=== PATIENT | female | born 1960 | race African-American/Black ===

== ENCOUNTER 2019-08-27 11:29 | Emergency (ER) | payer OTHER ==
[~2019-08-27] VITALS: Ht 167.6 cm; Wt 95.3 kg
[2019-08-27 11:38] VITALS: BP 154/112
--- NOTE | 2019-08-27 11:45 | NUR ---
PT C/O ANXIETY, CHRONIC BACK PAIN, INSOMNIA X3 DAYS. PT STATES SHE HAS BEEN OFF OF [facility]CO FOR LOWER BACK PAIN FOR ONE WEEK DUE TO LORAZEPAM THAT SHE IS TAKING FOR HER ANXIETY. PT DENIES ANY FEVER, CP, SOB, OR COUGH AT THIS TIME; PATIENT STATES PAIN OF 10/10 AT THIS TIME; VSS; PATIENT POSITIONED FOR COMFORT; HOB ELEVATED; BEDRAILS UP X2; BED DOWN. ER MD MADE AWARE OF PT STATUS.
--- NOTE | 2019-08-27 12:16 | NUR ---
Dr. Black is evaluating the patient at bedside.
[2019-08-27] MEDS ORDERED: KETOROLAC 30 MG/ML VIAL IM ONE (12:30)
[2019-08-27] MEDS ORDERED: LORazepam 0.5 MG TAB PO ONE (12:30)
[2019-08-27] MEDS ORDERED: ONDANSETRON 4 MG ODT PO ONE (12:40)
[2019-08-27 13:04] VITALS: BP 152/95
== END 2019-08-27 13:04 | disposition home or self-care (01) ==
LOC: MED 11:29
DX: M54.5 Low back pain (principal); E11.9 Type 2 diabetes mellitus without complications; I10 Essential (primary) hypertension; I50.9 Heart failure, unspecified; Z95.0 Presence of cardiac pacemaker; Z92.89 Personal history of other medical treatment
CPT/HCPCS: 96372; 99283; J1885; Q0162

== ENCOUNTER 2019-09-10 09:50 | Emergency (ER) | payer OTHER ==
[~2019-09-10] VITALS: Ht 167.6 cm; Wt 96.2 kg
[2019-09-10 09:57] VITALS: BP 131/73
--- NOTE | 2019-09-10 10:19 | NUR ---
58 YEAR OLD FEMALE COMPLAINS OF CHEST PAIN X 2 DAYS. PT STATES THAT PAIN FEELS LIKE CONGESTION. PT ALSO STATES SOB, RR 21, SPO2 98% ON RA. PT LUNGS CLEAR BILATERAL BUT DIMINISHED AND COUGHS WHEN DEEP BREATHE. PT AOX4, BREATHING EVEN AND UNLABORED, SKIN WARM AND DRY. BED IN LOWEST POSIITON,LOCKED, BED RAIL UPX1. PT PLACED ON MONITOR, VS STABLE. PMH - DM2, HTN, ANXIETY, BACK PAIN, ASTHMA, CARDIAC ARREST X 2 YR AGO ALLERGIES - FLONASE
[2019-09-10] MEDS ORDERED: LORazepam 2 MG/ML VIAL IVP ONE (10:30)
[2019-09-10 10:46] LABS: BASOPHILS # (AUTO) 0.1 K/uL (0.00-0.22); BASOPHILS % (AUTO) 0.6 % (0.0-2.0); EOSINOPHILS # (AUTO) 1.1 K/uL (0-0.4); HEMATOCRIT 34.2 % (36-48); HEMOGLOBIN 11.5 g/dL (12.0-16.0); LYMPHOCYTES # (AUTO) 2.6 K/uL (2.5-16.5); LYMPHOCYTES % (AUTO) 25.2 % (20.5-51.1); MEAN CORPUSCULAR HEMOGLOBIN 33 pg (27-31); MEAN CORPUSCULAR HGB CONC 34 g/dL (33-37); MEAN CORPUSCULAR VOLUME 98.7 fL (80-94); MONOCYTES # (AUTO) 0.9 K/uL (0.8-1.0); MONOCYTES % (AUTO) 8.5 % (1.7-9.3); NEUTROPHILS # (AUTO) 5.6 K/uL (1.8-7.7); NEUTROPHILS % (AUTO) 54.7 % (42.2-75.2); PLATELET COUNT (AUTO) 231 K/uL (140-450); RED BLOOD CELL COUNT(AUTO) 3.46 MIL/uL (4.20-5.40); RED CELL DISTRIBUTION WIDTH 12.4 % (11.6-13.7); WHITE BLOOD COUNT (AUTO) 10.3 K/uL (4.8-10.8)
[2019-09-10 11:11] LABS: ALBUMIN 3.2 g/dL (3.4-5.0); ANION GAP 15.2 (8-16); CARBON DIOXIDE 25.3 mmol/L (21-32); CREATININE 1.6 mg/dL (0.6-1.3); POTASSIUM 3.5 mmol/L (3.5-5.1); TOTAL BILIRUBIN 0.1 mg/dL (0.0-1.0)
--- NOTE | 2019-09-10 11:20 | NUR ---
PT RESTING WITH EYES CLOSED, BREATHING EVEN AND UNLABORED
--- NOTE | 2019-09-10 11:46 | NUR ---
PT STATES SHE FEELS MUCH LESS ANXIOUS AND IS FEELING BETTER
--- NOTE | 2019-09-10 13:38 | NUR ---
PT ALERT AND AWAKE, BREATHING EVEN AND UNLABORED
--- NOTE | 2019-09-10 13:50 | NUR ---
PT STATES SHE IS HAVING PAIN AND ANXIETY NOW, STATES SHE WANTS DILAUDID. ERMD MADE AWARE
[2019-09-10 14:10] VITALS: BP 140/92
--- NOTE | 2019-09-10 14:10 | NUR ---
Patient discharged with v/s stable. Written and verbal after care instructions about anxiety and panic attacks, and adjustment disorder given and explained. Patient verbalized understanding. Ambulatory with steady gait. All questions addressed prior to discharge. Advised to follow up with PMD.
[2019-09-11] MEDS ORDERED: AZITHROMYCIN 500 MG INJ VIAL IV ONE (00:43)
== END 2019-09-10 14:10 | disposition home or self-care (01) ==
LOC: MED 09:50
DX: F41.9 Anxiety disorder, unspecified (principal); R06.02 Shortness of breath; M54.5 Low back pain; E11.9 Type 2 diabetes mellitus without complications; F17.200 Nicotine dependence, unspecified, uncomplicated; I10 Essential (primary) hypertension; I51.89 Other ill-defined heart diseases; J45.909 Unspecified asthma, uncomplicated
CPT/HCPCS: 36415; 71045; 80053; 84484; 85025; 93005; 96374; 99285; J2060; Q0092; J0456

== ENCOUNTER 2020-01-27 19:39 | Emergency (ER) | payer OTHER ==
[~2020-01-27] VITALS: Ht 167.6 cm; Wt 95.3 kg
[2020-01-27 19:45] VITALS: BP 182/100
--- NOTE | 2020-01-27 19:47 | NUR ---
SEEN AND EXAMINED BY CHIP AND WITH ORDERS, CARRIED OUT
[2020-01-27] MEDS ORDERED: MORPHINE SULFATE 4 MG/ML SYR IVP ONE (20:00)
[2020-01-27] MEDS ORDERED: NACL 0.9% 1,000 ML IV SCH (20:00)
[2020-01-27] MEDS ORDERED: ONDANSETRON 4 MG/2 ML VIAL IVP ONE ×2 (20:00→23:55)
--- NOTE | 2020-01-27 20:08 | NUR ---
EKG PERFORMED IN TRIAGE ROOM. EKG READS SINUS RHYTHM @ 82
[2020-01-27 20:41] LABS: BASOPHILS # (AUTO) 0.2 K/uL (0.00-0.22); BASOPHILS % (AUTO) 0.9 % (0.0-2.0); EOSINOPHILS # (AUTO) 0.1 K/uL (0-0.4); EOSINOPHILS % (AUTO) 0.6 % (0.0-4.0); HEMATOCRIT 37.9 % (36-48); HEMOGLOBIN 12.6 g/dL (12.0-16.0); LYMPHOCYTES # (AUTO) 2.2 K/uL (2.5-16.5); LYMPHOCYTES % (AUTO) 11.5 % (20.5-51.1); MEAN CORPUSCULAR HEMOGLOBIN 32 pg (27-31); MEAN CORPUSCULAR HGB CONC 33 g/dL (33-37); MEAN CORPUSCULAR VOLUME 97.5 fL (80-94); MONOCYTES # (AUTO) 1.4 K/uL (0.8-1.0); MONOCYTES % (AUTO) 7.3 % (1.7-9.3); NEUTROPHILS % (AUTO) 79.7 % (42.2-75.2); PLATELET COUNT (AUTO) 262 K/uL (140-450); RED BLOOD CELL COUNT(AUTO) 3.89 MIL/uL (4.20-5.40); RED CELL DISTRIBUTION WIDTH 15.6 % (11.6-13.7); WHITE BLOOD COUNT (AUTO) 18.8 K/uL (4.8-10.8)
[2020-01-27 20:41] LABS: APPEARANCE,URINE CLEAR (CLEAR); BILIRUBIN,URINE NEGATIVE (NEGATIVE); BLOOD, URINE NEGATIVE (NEGATIVE); COLOR,URINE YELLOW (YELLOW); LEUKOCYTE ESTERASE ,URINE NEGATIVE (NEGATIVE); NITRITE, URINE NEGATIVE (NEGATIVE); UGLUCOSE 1+ (NEGATIVE)
--- NOTE | 2020-01-27 20:47 | NUR ---
PT TAKEN TO CT/XRAY VIA W/C.
[2020-01-27 20:51] LABS: ALBUMIN 4.1 g/dL (3.4-5.0); ANION GAP 15.1 (8-16); CARBON DIOXIDE 26.3 mmol/L (21-32); CREATININE 1.2 mg/dL (0.6-1.3); POTASSIUM 3.4 mmol/L (3.5-5.1); TOTAL BILIRUBIN 0.2 mg/dL (0.0-1.0)
--- NOTE | 2020-01-27 20:56 | NUR ---
PT RETURN FROM RAD TO ER MISSYBY
--- NOTE | 2020-01-27 21:12 | NUR ---
PT MOVED TO ER BED
--- NOTE | 2020-01-27 21:22 | NUR ---
Dr. Cunningham examining patient.
[2020-01-27] MEDS ORDERED: ONDANSETRON 4 MG/2 ML VIAL ONE (21:23)
[2020-01-27] MEDS ORDERED: MORPHINE SULFATE 4 MG/ML SYR ONE (21:23)
--- NOTE | 2020-01-27 21:30 | NUR ---
SWAB DONE SENT TO LAB
[2020-01-27] MEDS ORDERED: HYDROcodone/APAP 7.5/325 MG 1 TAB PO ONE (22:35)
[2020-01-27] MEDS ORDERED: NACL 0.9% 1,000 ML IV ONE (22:50)
[2020-01-27] MEDS ORDERED: MORPHINE SULFATE 10 MG/ML VIAL IVP ONE (22:55)
--- NOTE | 2020-01-27 22:59 | NUR ---
PT REPORTS 10/10 PAIN. ERMD MADE AWARE
--- NOTE | 2020-01-27 23:40 | NUR ---
PT REPORTS NAUSEA. ERMD MADE AWARE. NEW ORDER FOR ZOFRAN 4MG IVP, ORDERS CARRIED OUT.
[2020-01-27] MEDS ORDERED: OMEP20TC22 PO (23:47)
[2020-01-27] MEDS ORDERED: CLOP75TA55 PO (23:47)
[2020-01-27] MEDS ORDERED: METH750T5 PO (23:47)
[2020-01-27] MEDS ORDERED: TIZA2CAP PO (23:47)
[2020-01-27] MEDS ORDERED: PAX20 PO (23:47)
[2020-01-27] MEDS ORDERED: ATOR20TA PO (23:47)
[2020-01-27] MEDS ORDERED: LOSA100T51 PO (23:47)
[2020-01-27] MEDS ORDERED: [UNRECOGNIZED DRUG - CODE] PO (23:47)
[2020-01-27] MEDS ORDERED: BUS5 PO (23:47)
[2020-01-27] MEDS ORDERED: HYDR-5092 PO (23:47)
--- NOTE | 2020-01-28 00:10 | NUR ---
PT REPORTS NAUSEA HAS DISOLVED AT THIS TIME.
[2020-01-28] MEDS ORDERED: KETOROLAC 30 MG/ML VIAL IVP ONE (00:30)
[2020-01-28] MEDS ORDERED: diphenhydrAMINE 50 MG/ML VIAL IVP ONE (00:30)
--- NOTE | 2020-01-28 00:45 | NUR ---
SPOKE WITH PATIENT DAUGHTER TO INFORM HER OF PT CONDITION, PT DAUGHTER HUNG UP ON PRIMARY RN. PT DAUGHTER BOLTED IN ER FROM LOBBY AND FOUND BEDSIDE WITH PATIENT. PT DAUGHTER FOUND AGITATED AND UPSET REGARDING HER MOTHERS CARE. DAUGHTER REASSURED THAT MOTHER WAS BEING PROPERLY CARED FOR. PT DAUGHTER INFORMED OF FACILITY POLICY OF NO VISITORS AT THIS TIME AND POLITELY ASKED TO LEAVE AND THAT UPDATES CAN BE RECEIVED VIA TELEPHONE.
[2020-01-28 01:24] VITALS: BP 160/76
--- NOTE | 2020-01-28 01:26 | NUR ---
UPON REASSESSMENT S/P TORADOL ADMINSTRATION, PT REPORTS UNCHANGED 10/10 PAIN. WILL NOTIFY ERMD
--- NOTE | 2020-01-28 01:41 | NUR ---
CALLED REECE WELDON S/W [facility]ULA [facility] TO GIVE REPORT. ETA FOR TRANSPORTATION IS [phone].
--- NOTE | 2020-01-28 01:50 | NUR ---
PT UPDATED ON TRANSFER. PT AGREEABLE TO TRANSFER.
[2020-01-28] MEDS ORDERED: NACL 0.9% 500 ML IV ONE (02:05)
[2020-01-28] MEDS ORDERED: KETAMINE 500 MG/5 ML VIAL IVP ONE (02:05)
--- NOTE | 2020-01-28 02:05 | NUR ---
[facility] AT BEDSIDE
--- NOTE | 2020-01-28 02:11 | NUR ---
CALLED REECE WELDON S/Caryn [facility] TO INFORM THAT PT WAS EN ROUTE.
--- NOTE | 2020-01-28 02:11 | NUR ---
PT TAKEN BY [facility]
== END 2020-01-28 02:11 | disposition short-term general hospital (02) ==
LOC: MED 19:39
DX: K85.90 Acute pancreatitis without necrosis or infection, unspecified (principal); M54.9 Dorsalgia, unspecified; J45.909 Unspecified asthma, uncomplicated; E11.9 Type 2 diabetes mellitus without complications; I10 Essential (primary) hypertension; Z98.84 Bariatric surgery status
CPT/HCPCS: 36415; 71045; 74176; 80053; 81003; 83605; 83690; 84484; 85025; 87040; 87426; 93005; 96361; 96374; 96375; 96376; 99285; J1200; J1885; J2270; J2405; J7030; 99283

== ENCOUNTER 2020-09-13 17:06 | Emergency (ER) | payer OTHER ==
[~2020-09-13] VITALS: Ht 167.6 cm; Wt 83.9 kg
[~2020-09-13 17:06] MED LIST: ATOR20TA PO; BUS5 PO; CLOP75TA55 PO; HYDR-5092 PO; LOSA100T51 PO; METH750T5 PO; OMEP20TC22 PO; PAX20 PO; TIZA2CAP PO; [UNRECOGNIZED DRUG - CODE] PO
[2020-09-13 17:13] VITALS: BP 128/84
--- NOTE | 2020-09-13 17:19 | NUR ---
PT TAKEN TO ER BED 3.
--- NOTE | 2020-09-13 17:56 | NUR ---
59 Y/O FEMALE C/O ABDOMINAL PAIN 07/29 DESCRIBES CRAMPING WITH N/V X 3 DAYS. PT ALSO COMPLAINS OF PALPITATIONS FOR THE PAST WEEK. PT STATES SOME DIZZINESS WITH ANXIETY. PMH: DM2, HTN, DEFIBRILLATOR NKA
--- NOTE | 2020-09-13 18:01 | NUR ---
DR. AMOS AT PT BEDSIDE FOR FURTHER EVALUATION.
[2020-09-13] MEDS ORDERED: NACL 0.9% 1,000 ML IV ONE ×2 (18:10)
[2020-09-13] MEDS ORDERED: MORPHINE SULFATE 4 MG/ML SYR IVP ONE ×2 (18:10→21:55)
[2020-09-13] MEDS ORDERED: ONDANSETRON 4 MG/2 ML VIAL IVP ONE ×2 (18:10)
--- NOTE | 2020-09-13 18:31 | NUR ---
TUMBLING BARREL PAINTER AT PT BEDSIDE.
[2020-09-13 18:36] LABS: BASOPHILS # (AUTO) 0.1 K/uL (0.00-0.22); BASOPHILS % (AUTO) 0.5 % (0.0-2.0); EOSINOPHILS # (AUTO) 0.3 K/uL (0-0.4); EOSINOPHILS % (AUTO) 2.5 % (0.0-4.0); HEMATOCRIT 36.6 % (36-48); HEMOGLOBIN 12.1 g/dL (12.0-16.0); LYMPHOCYTES # (AUTO) 2.3 K/uL (2.5-16.5); MEAN CORPUSCULAR HEMOGLOBIN 33 pg (27-31); MEAN CORPUSCULAR HGB CONC 33 g/dL (33-37); MEAN CORPUSCULAR VOLUME 100.1 fL (80-94); MONOCYTES # (AUTO) 1.4 K/uL (0.8-1.0); MONOCYTES % (AUTO) 10.6 % (1.7-9.3); NEUTROPHILS # (AUTO) 8.9 K/uL (1.8-7.7); NEUTROPHILS % (AUTO) 68.4 % (42.2-75.2); PLATELET COUNT (AUTO) 214 K/uL (140-450); RED BLOOD CELL COUNT(AUTO) 3.66 MIL/uL (4.20-5.40); RED CELL DISTRIBUTION WIDTH 14.3 % (11.6-13.7)
[2020-09-13 18:50] LABS: APPEARANCE,URINE CLEAR (CLEAR); BILIRUBIN,URINE NEGATIVE (NEGATIVE); BLOOD, URINE NEGATIVE (NEGATIVE); COLOR,URINE YELLOW (YELLOW); LEUKOCYTE ESTERASE ,URINE NEGATIVE (NEGATIVE); NITRITE, URINE NEGATIVE (NEGATIVE); UGLUCOSE 3+ (NEGATIVE)
--- NOTE | 2020-09-13 19:05 | NUR ---
Pt taken to CT via W/C.
[2020-09-13 19:06] LABS: ALBUMIN 3.6 g/dL (3.4-5.0); ANION GAP 17.6 (8-16); CARBON DIOXIDE 23.2 mmol/L (21-32); CREATININE 1.4 mg/dL (0.6-1.3); TOTAL BILIRUBIN 0.2 mg/dL (0.0-1.0)
[2020-09-13 19:08] LABS: POTASSIUM 2.8 mmol/L (3.5-5.1)
--- NOTE | 2020-09-13 19:29 | NUR ---
Gave report to PAULA Kamara. Transfer of care at this time.
--- NOTE | 2020-09-13 19:29 | NUR ---
REPORT RECEIVED FROM PAULA SANDOVAL FOR CONTINUATION OF CARE.
[2020-09-13] MEDS ORDERED: POTASSIUM CHLORIDE 20% 40 MEQ/15 ML UDC PO ONE (19:35)
[2020-09-13] MEDS ORDERED: KCL 20 MEQ/WATER INJ PREMIX 200 ML IV ONE (19:35)
--- NOTE | 2020-09-13 21:40 | NUR ---
PATIENT SITTING IN BED LOCKED IN LOWEST POSITION X1 SIDE RAIL UP. PATIENT C/O OF ABDOMINAL AND LOWER BACK PAIN, ERMD MADE AWARE.
[2020-09-13] MEDS ORDERED: POTASSIUM CHLORIDE 20% 40 MEQ/15 ML UDC ONE (21:41)
--- NOTE | 2020-09-13 21:45 | NUR ---
PATIENT REFUSED POTASSIUM MEDICATIONS AT THIS TIME. REPORTS SHE WANTS PAIN MEDICATIONS FIRST. PATIENT REFUSING TO BE ON MONITOR.
[2020-09-13] MEDS ORDERED: LORazepam 1 MG TAB PO ONE (22:50)
--- NOTE | 2020-09-13 22:55 | NUR ---
ANDREIA SAMPLE COLLECTED FROM NARES AND HANDED TO MARTIR FROM LAB.
--- NOTE | 2020-09-14 01:30 | NUR ---
PATIENT CONTINUES TO DISCONNECT SELF FROM MONITOR FOR VS. PATIENT LAYING IN BED ON HER PHONE. BED LOCKED IN LOWEST POSITION X1 SIDERAIL UP, BREATHING EVEN AND UNLABORED. NAD NOTED, WILL CONTINUE TO MONITOR.
[2020-09-14] MEDS ORDERED: HYDROmorphone 2 MG TAB PO ONE ×2 (02:10→04:55)
--- NOTE | 2020-09-14 03:00 | NUR ---
PATIENT LAYING IN BED W HEAD AND ARMS LAYING ON OUT ONTO CHAIR, PATIENT CHAO EYES CLOSED. SPOKE W PATIENT ABOUT LAYING WHOLE BODY AND HEAD ON BED AND NOT THE CHAIR TO PREVENT FALLS PATIENT REFUSED.
--- NOTE | 2020-09-14 03:18 | NUR ---
PATIENT LAYING IN BED W EYES CLOSED, R LATERAL POSITION. X2 SIDE RAILS UP FOR PATIENT SAFETY. PATIENT CONNECTED TO MONITOR W VSS. BREATHING EVEN AND UNLABORED. NAD, NOTED. WILL CONTINUE TO MONITOR.
--- NOTE | 2020-09-14 04:45 | NUR ---
PATIENT SITTING IN BED, W CO 10/10 ABDOMINAL PAIN. PATIENT REFUSES TO BE ON THE MONITOR. UNABLE TO OBTAIN VITAL SIGNS AT THIS TIME. ERMD MADE AWARE, NEW ORDERS FOR PAIN MEDICATION PLACED.
[2020-09-14] MEDS ORDERED: LORazepam 1 MG TAB PO ONE (05:30)
--- NOTE | 2020-09-14 05:57 | NUR ---
MICHAELD made aware of patient BP 170/103. No new orders.
--- NOTE | 2020-09-14 07:12 | NUR ---
Pt report given to PAULA Payton. Transfer of care at this time.
--- NOTE | 2020-09-14 07:12 | NUR ---
Report received from PAULA Kamara; care assumed.
--- NOTE | 2020-09-14 08:10 | NUR ---
Patient resting in bed, bed locked in the lowest position, VSS, and call light within reach.
--- NOTE | 2020-09-14 08:15 | NUR ---
Patient ambulated to the restroom with a steady gait.
--- NOTE | 2020-09-14 09:19 | NUR ---
Patient resting in bed, bed locked in the lowest position, VSS, and call light within reach.
--- NOTE | 2020-09-14 09:50 | NUR ---
Attempted to call report to [phone] multiple times no answer.
--- NOTE | 2020-09-14 10:17 | NUR ---
[facility] AT BEDSIDE FOR TRANSFER
[2020-09-14 10:25] VITALS: BP 170/103
--- NOTE | 2020-09-14 10:25 | NUR ---
Patient to be transferred to [facility]. Is being transferred due to pancreatitis. Receiving facility has accepting physician and available space. ER physician has signed transfer form. Patient or responsible democrat has agreed to transfer and signed form. Patient belongings inventoried and will be sent with patient. Copy of nursing notes, lab reports, EKG, Physicians Orders and X-rays to be sent with patient. Report called to Loya at receiving facility. [facility] ambulance service has been called for transfer. ETA is [phone].
--- NOTE | 2020-09-15 20:39 | NUR ---
LATE NOTE- LATE NOTE- 0.9% NS BOLUS X2 DISCONTINUED AT 1939
== END 2020-09-14 10:25 | disposition short-term general hospital (02) ==
LOC: MED 17:06
DX: K85.90 Acute pancreatitis without necrosis or infection, unspecified (principal); Z20.822 Contact with and (suspected) exposure to COVID-19; E87.6 Hypokalemia; J45.909 Unspecified asthma, uncomplicated; E11.9 Type 2 diabetes mellitus without complications; I10 Essential (primary) hypertension; Z95.0 Presence of cardiac pacemaker
CPT/HCPCS: 36415; 74176; 80053; 81003; 82150; 83690; 83735; 85025; 87426; 96361; 96365; 96375; 96376; 99285; J2270; J2405; J3480; J7030

== ENCOUNTER 2022-11-19 09:23 | Emergency (ER) | payer OTHER ==
[~2022-11-19] VITALS: Ht 167.6 cm; Wt 93.0 kg
[~2022-11-19 09:23] MED LIST changes: -LOSA100T51 PO; +LOSA100T52 PO
[2022-11-19 09:25] VITALS: BP 159/109; PULSE 97; RESP 15; TEMP 98.9; O2SAT 95
[2022-11-19 10:21] VITALS: O2SAT 95
[2022-11-19] MEDS ORDERED: BACITRACIN OINT 500 UNITS/GM PKT TP ONE (10:50)
[2022-11-19] MEDS ORDERED: HYDROcodone/APAP 10/325 MG 1 TAB TAB PO ONE (10:55)
== END 2022-11-19 12:14 | disposition home or self-care (01) ==
LOC: MED 09:23
DX: S61.212A Laceration without foreign body of right middle finger without damage to nail, initial encounter (principal); E11.9 Type 2 diabetes mellitus without complications; I10 Essential (primary) hypertension; J45.909 Unspecified asthma, uncomplicated; Z95.0 Presence of cardiac pacemaker; Z79.899 Other long term (current) drug therapy; W26.0XXA Contact with knife, initial encounter; Y93.89 Activity, other specified; Y92.89 Other specified places as the place of occurrence of the external cause; Y99.8 Other external cause status
CPT/HCPCS: 12001; 90471; 90715; 99283

== ENCOUNTER 2023-01-27 12:42 | Emergency (ER) | payer OTHER | END 2023-01-27 12:55 | disposition left against medical advice (07) | LOC: MED 12:42 | DX: M79.603 Pain in arm, unspecified (principal); Z53.21 Procedure and treatment not carried out due to patient leaving prior to being seen by health care provider ==

== ENCOUNTER 2023-03-29 10:09 | Emergency (ER) | payer OTHER ==
[~2023-03-29] VITALS: Ht 167.6 cm; Wt 90.7 kg
[2023-03-29 10:23] VITALS: BP 159/111; PULSE 86; RESP 19; TEMP 98.7; O2SAT 100
[2023-03-29] MEDS: KETOROLAC 60 MG/2 ML VIAL IM ONE (10:50)
[2023-03-29 13:28] VITALS: BP 168/90; PULSE 84; RESP 20; TEMP 97.2; O2SAT 98
== END 2023-03-29 13:44 | disposition home or self-care (01) ==
LOC: MED 10:09
DX: S20.212A Contusion of left front wall of thorax, initial encounter (principal); M25.562 Pain in left knee; J44.9 Chronic obstructive pulmonary disease, unspecified; E11.9 Type 2 diabetes mellitus without complications; I10 Essential (primary) hypertension; Z98.890 Other specified postprocedural states; Z79.899 Other long term (current) drug therapy; Z79.01 Long term (current) use of anticoagulants; W01.198A Fall on same level from slipping, tripping and stumbling with subsequent striking against other object, initial encounter; Y92.89 Other specified places as the place of occurrence of the external cause; Y93.89 Activity, other specified; Y99.8 Other external cause status
CPT/HCPCS: 71101; 73562; 96372; 99284; J1885

== ENCOUNTER 2023-12-10 06:51 | Emergency (ER) | payer OTHER ==
[~2023-12-10] VITALS: Ht 167.6 cm; Wt 93.0 kg
[2023-12-10 06:54] VITALS: BP 161/81; PULSE 95; RESP 21; O2SAT 99
[2023-12-10 07:07] VITALS: BP 161/81
[2023-12-10] MEDS: ONDANSETRON 4 MG/2 ML VIAL IVP ONE (07:36)
[2023-12-10] MEDS: MORPHINE SULFATE 4 MG/ML SYR IVP ONE ×2 (07:37→11:15)
[2023-12-10] MEDS: NACL 0.9% 1,000 ML IV ONE (07:48)
[2023-12-10 08:01] LABS: BASOPHILS # (AUTO) 0.1 K/uL (0.00-0.22); BASOPHILS % (AUTO) 0.5 % (0.0-2.0); EOSINOPHILS # (AUTO) 0.2 K/uL (0-0.4); EOSINOPHILS % (AUTO) 1.7 % (0.0-4.0); HEMATOCRIT 42.5 % (36-48); HEMOGLOBIN 13.8 g/dL (12.0-16.0); LYMPHOCYTES # (AUTO) 2.8 K/uL (2.5-16.5); LYMPHOCYTES % (AUTO) 23.6 % (20.5-51.1); MEAN CORPUSCULAR HEMOGLOBIN 30 pg (27-31); MEAN CORPUSCULAR HGB CONC 33 g/dL (33-37); MEAN CORPUSCULAR VOLUME 93.2 fL (80-94); MONOCYTES # (AUTO) 1.1 K/uL (0.8-1.0); MONOCYTES % (AUTO) 9.7 % (1.7-9.3); NEUTROPHILS # (AUTO) 7.6 K/uL (1.8-7.7); NEUTROPHILS % (AUTO) 64.5 % (42.2-75.2); PLATELET COUNT (AUTO) 259 K/uL (140-450); RED BLOOD CELL COUNT(AUTO) 4.56 MIL/uL (4.20-5.40); RED CELL DISTRIBUTION WIDTH 14.3 % (11.6-13.7); WHITE BLOOD COUNT (AUTO) 11.8 K/uL (4.8-10.8)
[2023-12-10 08:49] LABS: PARTIAL THROMBOPLASTIN TIME 24.4 secs (22-35.6); PROTHROMBIN TIME 10.5 secs (10.8-13.4)
[2023-12-10 09:16] LABS: ANION GAP 13.5 (8-16); CALCIUM 9.6 mg/dL (8.5-10.1); CARBON DIOXIDE 29.5 mmol/L (21-32); CREATININE 2.2 mg/dL (0.6-1.3)
[2023-12-10 09:22] LABS: ALANINE AMINOTRANSFERASE 19 U/L (12-78); ALBUMIN 3.7 g/dL (3.4-5.0); ALKALINE PHOSPHATASE 119 U/L (50-136); ASPARTATE AMINOTRANSFERASE 14 U/L (15-37); BILIRUBIN,DIRECT 0.1 mg/dL (0.0-0.3); LIPASE 985 U/L (16-77); MAGNESIUM 1.6 mg/dL (1.8-2.4); PHOSPHORUS 3.7 mg/dL (2.5-4.9); TOTAL BILIRUBIN 0.3 mg/dL (0.0-1.0)
[2023-12-10] MEDS: NITROGLYCERIN 0.4 MG TAB SL ONE (09:46)
[2023-12-10 10:23] LABS: BILIRUBIN,URINE NEGATIVE (NEGATIVE); BLOOD, URINE 1+ (NEGATIVE); COLOR,URINE YELLOW (YELLOW); LEUKOCYTE ESTERASE ,URINE NEGATIVE (NEGATIVE); NITRITE, URINE NEGATIVE (NEGATIVE); PH,URINE 5.5 (5.0-9.0); PROTEIN,URINE 1+ (NEGATIVE); UGLUCOSE 3+ (NEGATIVE); UROBILINOGEN,URINE 0.2 EU/dL (0.2 - 1)
[2023-12-10 10:25] LABS: APPEARANCE,URINE CLEAR (CLEAR)
[2023-12-10 10:37] LABS: SQUAMOUS EPITHELIAL CELL,UR 4-10 (MOD) /LPF (0-3 (FEW)); WBC,URINE 0-5 /HPF (0-5)
[2023-12-10 10:38] LABS: RBC,URINE 0-5 /HPF (0-5); YEAST,URINE Few /HPF (None Seen)
[2023-12-10 10:39] LABS: BACTERIA,URINE FEW /HPF (None Seen)
[2023-12-10] MEDS: METOCLOPRAMIDE 10 MG/2 ML INJ VIAL IVP ONE (11:15)
[2023-12-10] MEDS: KCL 20 MEQ IN 100 mL PREMIX 100 ML IV ONE (11:16)
[2023-12-10] MEDS: MAG SULF 2000 MG/WATER PREMIX 50 ML IV ONE (11:17)
[2023-12-10 14:15] VITALS: PULSE 102; RESP 19; TEMP 98.2; O2SAT 98
== END 2023-12-10 14:14 | disposition short-term general hospital (02) ==
LOC: MED 06:51
DX: K85.90 Acute pancreatitis without necrosis or infection, unspecified (principal); R07.9 Chest pain, unspecified; E87.6 Hypokalemia; E83.42 Hypomagnesemia; J44.9 Chronic obstructive pulmonary disease, unspecified; E11.9 Type 2 diabetes mellitus without complications; I10 Essential (primary) hypertension; I25.10 Atherosclerotic heart disease of native coronary artery without angina pectoris; R05.9 Cough, unspecified; R09.89 Other specified symptoms and signs involving the circulatory and respiratory systems; Z79.899 Other long term (current) drug therapy
CPT/HCPCS: 36415; 71045; 71250; 74176; 80048; 80076; 81001; 83690; 83735; 83880; 84100; 84484; 85025; 85610; 85730; 87086; 93005; 96361; 96365; 96368; 96375; 96376; 99285; J2270; J2405; J2765; J3475; J3480; J7030